=== PATIENT | female | born 1930 | race Caucasian/White ===

== ENCOUNTER 2016-11-19 19:32 | Observation (INO) | payer MEDICARE, OTHER ==
--- NOTE | ~2016-11-19 | HP ---
History And Physical [address] [place]. [address] NAME: ANGELITA BANEGAS : 28 STATUS : DIS Jones PAT#: [id number] AGE: 86 ADM/REG DATE : 11/19/16 MR#: [id number] REPORT SERV DATE: 12/11/16 DICTATED BY: ZENOBIA MAHARAJ DATE: 12/09/16 REPORT STATUS : Draft TRANSCRIBED BY: MODL DATE: 12/09/16 DATE OF ADMISSION: 11/19/2016 INDICATIONS: Chest pain. DIAGNOSES: 1. Atypical chest pain. 2. Normal adenosine Lexiscan. 3. Hypertension. 4. History of coronary artery disease status post RCA stenting. Status post remote myocardial infarction. 5. Diabetes. PLAN: 1. Continuation current medical interventions. 2. Follow up in my office in 3 weeks. HISTORY AND PHYSICAL: The patient is an 86-year-old female, whose prior history is remarkable for the aforementioned period of hypertension, and CAD presents this point in time with atypical chest pain. She admits to mild shortness of breath on exertion over the last 2 days. EKG revealed no acute changes. Troponin levels were negative. She is referred now for evaluation and new Lexiscan is pending. PAST MEDICAL HISTORY: As per above. PAST SURGICAL HISTORY: Old chart. MEDICATIONS: See old chart. ALLERGIES: NONCONTRIBUTORY. MEDICATIONS: Include Ativan 2 mg, Toradol, and Natural Ointment. SOCIAL HISTORY: Does not smoke or drink. FAMILY HISTORY: Noncontributory. REVIEW OF SYSTEMS: 10 point review of systems are reviewed, but noncontributory. PHYSICAL EXAMINATION: VITAL SIGNS: 120 systolic. NECK: Less than 7-cm JVP. Carotids were clear. LUNGS: Clear auscultation and percussion. CARDIAC: PMI is nondisplaced. S1, S2, no murmurs, rubs, or gallops. ABDOMEN: Soft, nontender. EXTREMITIES: No edema. NEURO: Nonfocal. DATA: EKG shows normal sinus rhythm, normal axis, normal intervals. Troponin levels were History And Physical [address] [place]. [address] NAME: ANGELITA BANEGAS : 28 STATUS : DIS Jones PAT#: [id number] AGE: 86 ADM/REG DATE : 11/19/16 MR#: [id number] REPORT SERV DATE: 12/11/16 DICTATED BY: ZENOBIA MAHARAJ DATE: 12/09/16 REPORT STATUS : Draft TRANSCRIBED BY: ROSSY DATE: 12/09/16 less. DIAGNOSTIC IMPRESSION: This patient presents at this point in time with the chest pain scenario currently hemodynamically stable. No evidence of myocardial infarction. The plan is to pursue a Lexiscan to assess for myocardial ischemia. DIANNE/ROSSY Zenobia Maharaj M.D. / [id number] CC: Brando Dickens M.D.
[2016-11-19 18:49] LABS: BASOPHILS 0.2 %; BASOPHILS ABSOLUTE 0.01 10/3/uL (0.0-0.16); EOSINOPHILS 0.4 %; EOSINOPHILS ABSOLUTE 0.02 10/3/uL (0.0-0.53); ER CBC TAT 0 Hrs 08 Mins; HEMATOCRIT 36.8 % (36.0-48.0); HEMOGLOBIN 12.5 g/dL (12.0-16.0); IMMATURE GRANULOCYTES 0.2 %; IMMATURE GRANULOCYTES ABSOLUTE 0.01 10/3/uL (0.0-0.11); LYMPHOCYTES 37.5 %; LYMPHOCYTES ABSOLUTE 1.94 10/3/uL (0.67-4.30); MEAN CORPUSCULAR VOLUME 88.5 fL (80-100); MONOCYTES 9.7 %; PLATELET COUNT 237 10/3/uL (150-400); RBC DISTRIBUTION WIDTH 16.2 % (12.0-16.0); RED CELL COUNT 4.16 10/6/uL (4.0-5.6); WHITE BLOOD CELLS 5.2 10/3/uL (4.5-10.5)
[2016-11-19 18:55] LABS: MANUAL DIFF NO %
[2016-11-19 19:02] LABS: BUN (BLOOD UREA NITROGEN) 12 MG/DL (6-23); CALCIUM, SERUM 10.1 MG/DL (8.5-10.4); CHEST PAIN PROFILE TAT 0 Hrs 21 Mins; CHLORIDE, SERUM 96 MMOL/L (96-112); CO2 (CARBON DIOXIDE) 26 MMOL/L (24-34); CREATININE 0.91 MG/DL (0.55-1.02); GFR AFRICAN AMERICAN 66 ML/MIN (>=60); GFR NON AFRICAN AMERICAN 57 ML/MIN (>=60); GLUCOSE, SERUM 114 MG/DL (60-99); POTASSIUM, SERUM 3.8 MMOL/L (3.5-5.3); SODIUM, SERUM 135 MMOL/L (135-148); TROPONIN I <0.02 NG/ML (<0.05)
[~2016-11-19 19:32] MED LIST: ATIVAN2 MG PO; ATV1 PO; BL FLAX SEED1000 MG OR; CALTRA600D PO; FISH-EPA1000 MG PO; HCTZ25B PO; LISINOPRIL40 MG PO; NEUR100 PO; NEXIUM40 PO; NOR10 PO; NORCO1 TAB PO; ZYRTEC ALLGY10 MG PO
[2016-11-19 19:36] LABS: PARTIAL THROMBO TIME 27.1 SEC (22.5-37.2)
[2016-11-19 19:38] LABS: D-DIMER QUANTITATIVE 0.28 ug/mLFEU (< 0.50); PROTIME (NOT ORD) 13.1 SEC (12.0-14.5)
[2016-11-19] MEDS ORDERED: NEUR100 PO (20:27)
[2016-11-19] MEDS ORDERED: NORCO1 TAB PO (20:27)
[2016-11-19] MEDS ORDERED: ATIVAN2 MG PO (20:27)
[2016-11-19] MEDS ORDERED: NOR10 PO (20:28)
[2016-11-19] MEDS ORDERED: NEXIUM40 PO (20:28)
[2016-11-19] MEDS ORDERED: THERGRANM PO (20:28)
[2016-11-19] MEDS ORDERED: ZYRTEC ALLGY10 MG PO (20:29)
[2016-11-19] MEDS ORDERED: FLONASE NAS (20:29)
[2016-11-19] MEDS ORDERED: HYDROCHLOROT25 MG PO (20:29)
[2016-11-19] MEDS ORDERED: ZOCOR20 PO (20:29)
[2016-11-19] MEDS ORDERED: BRILINTA90 MG PO (20:29)
[2016-11-19] MEDS ORDERED: CALTRA600D PO (20:30)
[2016-11-19] MEDS ORDERED: METHOC750B PO (20:31)
[2016-11-19] MEDS ORDERED: VOLTAREN1 % TOP (20:31)
[2016-11-19] MEDS ORDERED: LIDODERM TOP (20:31)
[2016-11-19] MEDS ORDERED: BL FLAX SEED1000 MG PO (20:33)
[2016-11-19] MEDS ORDERED: FISH-EPA1000 MG PO (20:33)
[2016-11-19] MEDS ORDERED: NITROSTAT0.4 MG SL (20:33)
[2016-11-19] MEDS ORDERED: DSS PO (20:34)
[2016-11-19] MEDS ORDERED: OCUVITE PO (20:34)
[2016-11-19] MEDS ORDERED: REFRESH EYE OPH (20:34)
[2016-11-19] MEDS ORDERED: PROCTOZONE1 CRE PR (20:35)
== END 2016-11-20 18:33 | disposition home or self-care (01) ==
LOC: ER 19:32 → CDU1 20:27
PROVIDERS: Specialist
DX: R07.89 Other chest pain (principal); I10 Essential (primary) hypertension; I25.10 Atherosclerotic heart disease of native coronary artery without angina pectoris; I25.2 Old myocardial infarction; E11.9 Type 2 diabetes mellitus without complications; Z90.710 Acquired absence of both cervix and uterus; G47.30 Sleep apnea, unspecified; M19.90 Unspecified osteoarthritis, unspecified site; F41.9 Anxiety disorder, unspecified
CPT/HCPCS: 71010; 78452; 80048; 83735; 84484 ×2; 85025; 85379; 85610; 85730; 93005 ×2; 93017; 96374; 96375 ×2; 96376; 99285; A9270 ×12; A9502; G0378; J0153; J1885; J2405